=== PATIENT | female | born 1980 | race Caucasian/White ===

== ENCOUNTER 2018-10-12 06:50 | Day surgery (SDC) | payer OTHER ==
[~2018-10-12] VITALS: Ht 157.5 cm; Wt 65.3 kg
[2018-10-12 07:24] VITALS: BP 121/78
[2018-10-12 11:41] VITALS: BP 105/61
== END 2018-10-12 11:40 | disposition home or self-care (01) ==
LOC: DS 06:50 → OR 09:30 → DS 11:40
PROVIDERS: Obstetrics & Gynecology
PROC: 0UDB7ZZ Extraction of Endometrium, Via Natural or Artificial Opening (ICD-10-PCS; principal; 2018-10-12 09:30)
DX: N92.1 Excessive and frequent menstruation with irregular cycle (principal); D64.9 Anemia, unspecified
CPT/HCPCS: C1758; J1170; J2250; J2405; J2704; J7120